=== PATIENT | male | born 1985 | race Caucasian/White ===

== ENCOUNTER 2024-11-21 08:12 | Day surgery (SDC) | payer SELFPAY ==
[2024-11-21] MEDS ORDERED: ONDANSETRON 4 MG/2 ML VIAL ONE ×2 (08:45→13:40)
[2024-11-21] MEDS ORDERED: KETOROLAC TROMETHAMINE 15 MG/ML VIAL ONE (08:45)
[2024-11-21 08:57] VITALS: BMI 36.0
[2024-11-21] MEDS: KETOROLAC TROMETHAMINE 15 MG/ML VIAL IVPUSH ONE (08:58)
[2024-11-21] MEDS: SODIUM CHLORIDE 0.9% 1000 ML INFUS.BAG IV ONE (08:58)
[2024-11-21] MEDS: ONDANSETRON 4 MG/2 ML VIAL IVPUSH ONE (08:59)
[2024-11-21 09:31] LABS: HEMATOCRIT 39.9 % (35.4-49); HEMOGLOBIN 13.5 G/dL (11.7-16.9); MCH 30.1 pg (25.7-33.7); MCHC 33.9 g/dl (32.0-35.9); MEAN CELL VOLUME 88.6 fl (80-96); MEAN PLT VOLUME 8.5 fl (7.5-11.1); PLATELET COUNT 223.7 10^3/uL (134-434); RDW 13.6 % (11.9-15.9); WHITE BLOOD COUNT 16.3 10^3/uL (4.0-10.8)
[2024-11-21 09:32] LABS: INR 1.14 (0.83-1.09)
[2024-11-21 09:35] LABS: ACTIVATED PTT 30.1 SECONDS (25.2-36.5)
[2024-11-21] MEDS: FAMOTIDINE 20 MG/50 ML IVPB 20 MG/50 ML MG IVPB ONE (09:36)
[2024-11-21] MEDS ORDERED: FAMOTIDINE 20 MG/50 ML IVPB 20 MG/50 ML MG IVPB ONE ×2 (09:37→10:00)
[2024-11-21 09:55] LABS: ALBUMIN 4.6 g/dl (3.4-5.0); ALK PHOS 64 U/L (45-117); ANION GAP 7 mmol/L (4-13); BILIRUBIN,TOTAL 0.7 mg/dl (0.2-1); CALCIUM 8.9 mg/dl (8.5-10.1); CHLORIDE 101 mmol/L (98-107); CO2 28 mmol/L (21-32); CREATININE 0.8 mg/dl (0.6-1.3); GLUCOSE,RANDOM 140 mg/dl (74-106); MAGNESIUM 1.7 mg/dL (1.8-2.4); POTASSIUM 3.6 mmol/L (3.5-5.1); SGOT/AST 13 U/L (15-37); SGPT/ALT 12 U/L (7-52); SODIUM 136 mmol/L (136-145)
[2024-11-21] MEDS ORDERED: PIPERACILLIN/TAZOBACTAM 4.5 GM VIAL IVPB ONE (10:01)
[2024-11-21] MEDS: PIPERACILLIN/TAZOB 4.5 GM 4.5 GM in DEXTROSE 5%-WATER 100 ML IVPB ONE (10:10)
[2024-11-21] MEDS ORDERED: ONDANSETRON 4 MG/2 ML VIAL IVPUSH PRN ×2 (10:15→17:17)
[2024-11-21] MEDS ORDERED: LACTATED RINGERS SOLUTION 1,000 ML/1,000 ML INFUS.BAG IV SCH (10:15)
[2024-11-21] MEDS ORDERED: ACETAMINOPHEN INJECTION 100 ML ONE (10:50)
[2024-11-21] MEDS: ACETAMINOPHEN 1000 MG/100 ML BAG IVPB PRN (10:54)
[2024-11-21 11:14] LABS: PLATELET ESTIMATE ADEQUATE
[2024-11-21 12:50] LABS: HIV INTERPRETATION NEGATIVE (NEGATIVE)
[2024-11-21] MEDS ORDERED: MIDAZOLAM HCL 2 MG/2 ML SINGLE DOSE VIAL ONE (13:40)
[2024-11-21] MEDS ORDERED: DEXAMETHASONE SOD PHOSPHATE 4 MG/1 ML VIAL ONE (13:40)
[2024-11-21] MEDS ORDERED: PROPOFOL 20 ML ONE ×2 (13:40→13:41)
[2024-11-21] MEDS ORDERED: SUCCINYLCHOLINE CHLORIDE 200 MG/10 ML SYRINGE ONE (13:40)
[2024-11-21] MEDS ORDERED: BUPIVACAINE HCL/PF 0.25% (2.5MG/ML) 10 ML VIAL ONE (14:38)
[2024-11-21] MEDS: BUPIVACAINE HCL/PF 0.25% (2.5MG/ML) 10 ML VIAL IJ ONE (16:40)
[2024-11-21] MEDS ORDERED: CEFOXITIN SODIUM/DEXTROSE,ISO 2 GM/50 ML BAG ONE (16:40)
[2024-11-21] MEDS: ceFAZolin 2 GRAM PREMIX BAG IVPB ONE (16:42)
[2024-11-21] MEDS ORDERED: SUGAMMADEX SODIUM 200 MG/2 ML VIAL ONE (16:58)
[2024-11-21] MEDS ORDERED: oxyCODONE HCL 5 MG TABLET PO PRN (17:15)
[2024-11-21] MEDS: LACTATED RINGERS SOLUTION 1,000 ML/1,000 ML INFUS.BAG IV SCH (17:25)
[2024-11-21] MEDS: KETOROLAC TROMETHAMINE 30 MG/1 ML VIAL IVPUSH SCH (18:00)
[2024-11-21] MEDS ORDERED: KETOROLAC TROMETHAMINE 30 MG/1 ML VIAL ONE (18:00)
[2024-11-21 19:08] VITALS: RESP 17
[2024-11-21 19:57] VITALS: BP 121/66; PULSE 79; TEMP 98.4
[2024-11-21] MEDS ORDERED: ACETAMINOPHEN 500 MG TABLET (FP) PO SCH (23:00)
[2024-11-22] MEDS ORDERED: IBUPROFEN 600 MG TABLET (FP) PO PRN (00:16)
== END 2024-11-21 21:30 | disposition home or self-care (01) ==
LOC: FER 08:12 → JASUSAT 10:14 → J5S 18:54 → JASUSAT 21:30
PROVIDERS: ATTEND Internal Medicine
PROC: 0DTJ4ZZ Resection of Appendix, Percutaneous Endoscopic Approach (ICD-10-PCS; principal; 2024-11-21 15:00)
DX: K35.891 Other acute appendicitis without perforation, with gangrene (principal)
CPT/HCPCS: 36415; 74176-TC; 80053; 81003; 83735; 85027; 85610; 85730; 86803; 86850; 86900; 86901; 87086; 87389; 88304-TC; 94760; 99285-25; J0131